=== PATIENT | female | born 2000 | race Caucasian/White ===

== ENCOUNTER 2022-08-30 19:37 | Emergency (ER) | payer MEDICAID ==
[2022-08-30 20:28] LABS: ESTIMATED GFR 93 mL/min (>60)
== END 2022-08-30 21:01 | disposition home or self-care (01) ==
LOC: JP.ED 19:37
DX: F41.0 Panic disorder [episodic paroxysmal anxiety] (principal); F45.8 Other somatoform disorders; Z88.0 Allergy status to penicillin; Z88.1 Allergy status to other antibiotic agents; Z91.040 Latex allergy status; Z88.2 Allergy status to sulfonamides; Z88.5 Allergy status to narcotic agent
CPT/HCPCS: 36415; 80053; 84443; 84484; 85025; 93005; 99284